=== PATIENT | female | born 1935 | race Caucasian/White ===

== ENCOUNTER 2018-10-31 09:15 | Outpatient (CLI) | payer MEDICARE | END 2018-10-31 23:59 | disposition home or self-care (01) | LOC: CFH 09:15 | PROVIDERS: ATTEND Nurse Practitioner | DX: M51.16 Intervertebral disc disorders with radiculopathy, lumbar region (principal); M48.061 Spinal stenosis, lumbar region without neurogenic claudication; M41.86 Other forms of scoliosis, lumbar region; M25.78 Osteophyte, vertebrae | CPT/HCPCS: 72148 ==